=== PATIENT | female | born 1955 ===

== ENCOUNTER 2017-02-18 18:26 | Emergency (ER) | payer OTHER ==
--- NOTE | 2017-02-18 20:30 | ED ORDER SUMMARY ---
..... Patient: YAEL MAGALLANES OrderSheet [facility] VisitID: [id number] [address] [place] [address] 61y, F Registration Date/Time: 02/18/2017 ORDER SHEET Weight: 99.7 kg (stated) Allergies: Dilaudid GENERAL ORDERS: Culture, Strep Screen Urgent (19:08 02/18/2017 Gemini Chahal) (Ack 19:11 SRedmond) (19:41 SRedmond) MEDICATION ORDERS: Claritin PO 10 mg (NOW) (19:13 02/18/2017 Gemini Chahal) (Ack 19:15 TChapman R.N.) (19:18 TChapman R.N.) Benadryl PO 50 mg (NOW) (19:13 02/18/2017 Gemini Chahal) (Ack 19:15 TChapman R.N.) (19:18 TChapman R.N.) IV FLUIDS: ORDER SHEET NOTES: [Electronically signed by Sindhu Mendoza R.N. (21:02/18/2017)] [Electronically signed by Kavon Garcia Dr. (09:20 02/26/2017)] [Electronically locked/signed by Sindhu Mendoza R.N. (21:02/18/2017)]
--- NOTE | 2017-02-18 20:30 | ED CLINICAL REPORT ---
Clinical Report - Physicians/Mid Levels [facility] [address] [place] [address] 02/18/2017 18:29 Patient: YAEL MAGALLANES Time Seen: 1908; initial patient contact. Arrived- By private vehicle. Historian- patient. HISTORY OF PRESENT ILLNESS Chief Complaint: COUGH, SORE THROAT, FEVER, CHILLS and MUSCLE ACHES. This started 2 weeks ago and is still present. It was gradual in onset and has been intermittent but is not gone now. The illness is described as moderate. The patient has had a cough, a sore throat, nasal congestion, muscle aches and a nasal discharge. No difficulty breathing or chest discomfort or pain. Additional history - The patient has had contact with a sick individual. No recent travel. Similar symptoms previously: None. Recent medical care: Not recently seen/assessed. REVIEW OF SYSTEMS All systems otherwise negative, except as recorded above. PAST HISTORY See nurses notes. Problems: no known problems. Medications: None. Allergies: Dilaudid. SOCIAL HISTORY Never smoker. Not exposed to second-hand smoke at home. No alcohol use or drug use. Is a local resident. ADDITIONAL NOTES The nursing notes have been reviewed. PHYSICAL EXAM Vital Signs: 02/18/2017 18:37 BP: 133/66. HR: 85. RR: 18. O2 saturation: 97%. Temp: 98.9 F. Blood pressure normal. Oxygen saturation normal. Appearance: Alert. No acute distress. (non-toxic. pleasant. cooperative. accompanied by family.). Eyes: Pupils equal, round and reactive to light. Eyes normal inspection. ENT: Ears normal. Nose normal. Pharynx normal. Uvula midline. Neck: Normal inspection. Neck supple. CVS: Normal heart rate and rhythm. Heart sounds normal. Pulses normal. Respiratory: No respiratory distress. Breath sounds normal. No rales, rhonchi, wheezes or stridor. Abdomen: Soft and nontender. No organomegaly. Back: Normal inspection. Skin: Skin warm and dry. Normal skin color. No rash. Normal skin turgor. Extremities: Extremities exhibit normal ROM. No lower extremity edema. LABS, X-RAYS, AND EKG Laboratory Tests: Culture, Strep Screen: (LILY: 02/18/2017 00:00) ( MsgRcvd 02/20/2017 10:37) Final results Test Result Flag Units (Reference) RAPID STREP SCREEN - THROAT DATE: 02/18/17 NEGATIVE SCREEN: RAPID STREP SCREEN NEGATIVE; CONFIRMATION TO FOLLOW . DATE: 02/20/17 NO BETA STREP ISOLATED: NO BETA STREP ISOLATED . PROGRESS AND PROCEDURES Course of Care: The patient is a pleasant 61 yo female with no pertinent past medical history presenting for sore throat and cough. Lungs are clear on examination. Patient in no acute distress and non-toxic. DO not feel CXR warranted at this time. Centor criteria are indeterminate. Rapid strep ordered. Patient agreeable to the treatment and plan. Workup shows negative rapid strep. Patient reexamind and continues to be be non-toxic and in no acute distress. No concern for meningitis or pneumonia. Vitals here in the emergency department have been normal. Discussed with patient her workup here in the ED, diagnosis, home care, follow up, and return precautions. All questions answered. The patient expressed understanding of these instructions and was agreeable to them. Disposition: Discharged. Condition: good. CLINICAL IMPRESSION 02/18/2017 18:37 BP: 133/66. HR: 85. RR: 18. O2 saturation: 97%. Temp: 98.9 F. Blood pressure normal. Oxygen saturation normal. Acute pharyngitis. INSTRUCTIONS Warnings: GENERAL WARNINGS: Return or contact your physician immediately if your condition worsens or changes unexpectedly, if not improving as expected, or if other problems arise. Specifically return if pain, vomiting, bleeding, breathing difficulty or fever. Your Current Medications: CONTINUE TAKING THE FOLLOWING MEDICATIONS: None*. Prescription Medications: Phenergan w/ Codeine 10mg / 6.25mg per 5 mL: take 1 teaspoon every 6 hours as needed for pain or cough. Dispense sixty (60) mL. No refill. Substitution is permissible. OTC Medications: Acetaminophen (available over the counter): take according to label instructions. Motrin (available over the counter): take according to label instructions. Benadryl Allergy 25 mg (available over the counter): take 1 orally every 6 hours. Dispense thirty (30). No refill. Substitution is permissible. (PRN nasal congestion) Claritin 10 mg (available over the counter): take 1 tablet orally every 12 hours as needed for congestion. Dispense thirty (30). No refill. Substitution is permissible. Follow-up: Return to the emergency department as needed. Follow up with your doctor in three days. Reason for referral: recheck today's concerns. Summary of care provided to patient via paper. Screening today revealed the patient's blood pressure to be in the normal range. The patient should follow up with a primary care provider for blood pressure management. Understanding of the discharge instructions verbalized by patient. (Electronically signed by Kavon Garcia Dr. 02/26/2017 9:20)
--- NOTE | 2017-02-18 20:30 | ED ORDER SUMMARY ---
..... Patient: YAEL MAGALLANES OrderSheet [facility] VisitID: [id number] [address] [place] [address] 61y, F Registration Date/Time: 02/18/2017 ORDER SHEET Weight: 99.7 kg (stated) Allergies: Dilaudid GENERAL ORDERS: Culture, Strep Screen Urgent (19:08 02/18/2017 Gemini Chahal) (Ack 19:11 SRedmond) (19:41 SRedmond) MEDICATION ORDERS: Claritin PO 10 mg (NOW) (19:13 02/18/2017 Gemini Chahal) (Ack 19:15 TChapman R.N.) (19:18 TChapman R.N.) Benadryl PO 50 mg (NOW) (19:13 02/18/2017 Gemini Chahal) (Ack 19:15 TChapman R.N.) (19:18 TChapman R.N.) IV FLUIDS: ORDER SHEET NOTES: [Electronically signed by Sindhu Mendoza R.N. (21:02/18/2017)] [Electronically signed by Kavon Garcia Dr. (09:20 02/26/2017)] [Electronically locked/signed by Sindhu Mendoza R.N. (21:02/18/2017)]
--- NOTE | 2017-02-18 20:30 | ED NURSING NOTES ---
Clinical Report - Nurses [facility] [place] [address] 02/18/2017 18:29 [id number] Triage time 18:37. Chief Complaint: COUGH, RUNNY NOSE and SORE THROAT. --18:41 Sindhu Mendoza R.N. 18:37 02/18/17. BP: 133/66. HR: 85. RR: 18. O2 saturation: 97%. Temp: 98.9 F. Pain level now 05/21. --18:41 Sindhu Mendoza R.N. Weight: 99.7 kg stated. Height/Length: 62 inches Per Patient. BMI: 40.2. --18:36 Sindhu Mendoza R.N. Medications None. --18:38 Sindhu Mendoza R.N. Allergies Dilaudid. --18:38 Sindhu Mendoza R.N. History Arrived by private vehicle. Historian: patient. Primary physician (nO dOC). Onset. (2 weeks ago). ( GOT WORSE IN THE LAST COUPLE DAYS). --18:41 Sindhu Mendoza R.N. PROBLEMS: no known problems. ADDITIONAL SURGERIES: Bladder Suspension. Hysterectomy. Knee Surgery. Laparoscopy. Tubal Ligation. --18:40 Sindhu Mendoza R.N. PHYSICAL ASSESSMENT 18:41 02/18/17. GENERAL / NEURO / PSYCH: Alert. Oriented X 4. Appears in no acute distress. HEENT: Pupils equal, round and reactive to light. Runny nose. Mucous membranes are pink. RESPIRATORY: Respirations not labored. Breath sounds within normal limits. CVS: Normal sinus rhythm noted. Capillary refill less than 2 seconds. SKIN: Skin is warm. Normal skin turgor. --18:41 Sindhu Mendoza R.N. NURSING PROGRESS NOTES 18:42 02/18/17. Patient gowned. Call light placed in reach. Side rails up x 1. Bed placed in lowest position. Brakes of bed on. Patient ready for evaluation- chart flagged and notification provided. --18:42 Sindhu Mendoza R.N. 19:18 02/18/2017 Claritin (Loratadine) PO 10 mg given. Allergies verified and confirmed 5 rights. --19:18 Sindhu Mendoza R.N. 19:18 02/18/2017 Benadryl (DiphenhydrAMINE HCl) PO 50 mg given. Allergies verified, confirmed 5 rights and sedative warning given to the patient. --19:18 Sindhu Mendoza R.N. DISPOSITION / DISCHARGE 20:37 02/18/17. Condition at departure: stable. The goals identified in the patient's plan of care were met. No learning barriers present. Discharge instructions provided and reviewed with the patient and spouse. Reviewed warnings (Do not drive while on sedative medications.). Reviewed medication(s) side effects, precautions, dosing and course information. Prescription(s) given to the patient. Patient verbalized understanding. Written instructions provided in [place]. ( If you have an allergy with dilaudid you may find that you are sensitive to codeine products contained in one of the medications you were prescribed, use caution when taking this medication or you may choose not to take it. Follow up with your PCP in three days. Return if symptoms worsen. Increase fluids to loosen secretions. Get plenty of rest. Patient and spouse verbalized understanding and had no questions at this time.). The patient was discharged by the physician. She was discharged home and accompanied by spouse. She left the Emergency Department ambulatory and via private vehicle. Spouse driving. FALL RISK ASSESSMENT: Fall risk assessment completed. No fall risk identified. --20:37 Elisabeth Matos 20:34 02/18/17. BP: 132/60. HR: 80. RR: 20. O2 saturation: 97% on room air. Temp: 98.9 F (oral). --20:37 Elisabeth Matos. Locked/Released at 02/18/2017 21:01 by Sindhu Mendoza R.N.
--- NOTE | 2017-02-18 20:30 | ED NURSING NOTES ---
Clinical Report - Nurses [facility] [place] [address] 02/18/2017 18:29 [id number] Triage time 18:37. Chief Complaint: COUGH, RUNNY NOSE and SORE THROAT. --18:41 Sindhu Mendoza R.N. 18:37 02/18/17. BP: 133/66. HR: 85. RR: 18. O2 saturation: 97%. Temp: 98.9 F. Pain level now 05/21. --18:41 Sindhu Mendoza R.N. Weight: 99.7 kg stated. Height/Length: 62 inches Per Patient. BMI: 40.2. --18:36 Sindhu Mendoza R.N. Medications None. --18:38 Sindhu Mendoza R.N. Allergies Dilaudid. --18:38 Sindhu Mendoza R.N. History Arrived by private vehicle. Historian: patient. Primary physician (nO dOC). Onset. (2 weeks ago). ( GOT WORSE IN THE LAST COUPLE DAYS). --18:41 Sindhu Mendoza R.N. PROBLEMS: no known problems. ADDITIONAL SURGERIES: Bladder Suspension. Hysterectomy. Knee Surgery. Laparoscopy. Tubal Ligation. --18:40 Sindhu Mendoza R.N. PHYSICAL ASSESSMENT 18:41 02/18/17. GENERAL / NEURO / PSYCH: Alert. Oriented X 4. Appears in no acute distress. HEENT: Pupils equal, round and reactive to light. Runny nose. Mucous membranes are pink. RESPIRATORY: Respirations not labored. Breath sounds within normal limits. CVS: Normal sinus rhythm noted. Capillary refill less than 2 seconds. SKIN: Skin is warm. Normal skin turgor. --18:41 Sindhu Mendoza R.N. NURSING PROGRESS NOTES 18:42 02/18/17. Patient gowned. Call light placed in reach. Side rails up x 1. Bed placed in lowest position. Brakes of bed on. Patient ready for evaluation- chart flagged and notification provided. --18:42 Sindhu Mendoza R.N. 19:18 02/18/2017 Claritin (Loratadine) PO 10 mg given. Allergies verified and confirmed 5 rights. --19:18 Sindhu Mendoza R.N. 19:18 02/18/2017 Benadryl (DiphenhydrAMINE HCl) PO 50 mg given. Allergies verified, confirmed 5 rights and sedative warning given to the patient. --19:18 Sindhu Mendoza R.N. DISPOSITION / DISCHARGE 20:37 02/18/17. Condition at departure: stable. The goals identified in the patient's plan of care were met. No learning barriers present. Discharge instructions provided and reviewed with the patient and spouse. Reviewed warnings (Do not drive while on sedative medications.). Reviewed medication(s) side effects, precautions, dosing and course information. Prescription(s) given to the patient. Patient verbalized understanding. Written instructions provided in [place]. ( If you have an allergy with dilaudid you may find that you are sensitive to codeine products contained in one of the medications you were prescribed, use caution when taking this medication or you may choose not to take it. Follow up with your PCP in three days. Return if symptoms worsen. Increase fluids to loosen secretions. Get plenty of rest. Patient and spouse verbalized understanding and had no questions at this time.). The patient was discharged by the physician. She was discharged home and accompanied by spouse. She left the Emergency Department ambulatory and via private vehicle. Spouse driving. FALL RISK ASSESSMENT: Fall risk assessment completed. No fall risk identified. --20:37 Elisabeth Matos 20:34 02/18/17. BP: 132/60. HR: 80. RR: 20. O2 saturation: 97% on room air. Temp: 98.9 F (oral). --20:37 Elisabeth Matos. Locked/Released at 02/18/2017 21:01 by Sindhu Mendoza R.N.
--- NOTE | 2017-02-26 09:20 | ED DISCHARGE INSTRUCTIONS ---
Patient: YAEL MAGALLANES General Instructions [facility] VisitID: [id number] [place] [address] 61y, F Registration Date/Time: 02/18/2017 02/18/2017 18:37 BP: 133/66. HR: 85. RR: 18. O2 saturation: 97%. Temp: 98.9 F. Blood pressure normal. Oxygen saturation normal. Acute pharyngitis. INSTRUCTIONS Warnings: GENERAL WARNINGS: Return or contact your physician immediately if your condition worsens or changes unexpectedly, if not improving as expected, or if other problems arise. Specifically return if pain, vomiting, bleeding, breathing difficulty or fever. Your Current Medications: CONTINUE TAKING THE FOLLOWING MEDICATIONS: None*. Prescription Medications: Phenergan w/ Codeine 10mg / 6.25mg per 5 mL: take 1 teaspoon every 6 hours as needed for pain or cough. Dispense sixty (60) mL. No refill. Substitution is permissible. OTC Medications: Acetaminophen (available over the counter): take according to label instructions. Motrin (available over the counter): take according to label instructions. Benadryl Allergy 25 mg (available over the counter): take 1 orally every 6 hours. Dispense thirty (30). No refill. Substitution is permissible. (PRN nasal congestion) Claritin 10 mg (available over the counter): take 1 tablet orally every 12 hours as needed for congestion. Dispense thirty (30). No refill. Substitution is permissible. Follow-up: Return to the emergency department as needed. Follow up with your doctor in three days. Reason for referral: recheck today's concerns. Summary of care provided to patient via paper. Screening today revealed the patient's blood pressure to be in the normal range. The patient should follow up with a primary care provider for blood pressure management. Understanding of the discharge instructions verbalized by patient. ADDITIONAL INFORMATION Viral Respiratory Illness [Adult] You have an Upper Respiratory Illness (URI) caused by a virus. This illness is contagious during the first few days. It is spread through the air by coughing and sneezing or by direct contact (touching the sick person and then touching your own eyes, nose or mouth). Most viral illnesses go away within 7-10 days with rest and simple home remedies. Sometimes, the illness may last for several weeks. Antibiotics will not kill a virus and are generally not prescribed for this condition. Home Care: 1) If symptoms are severe, rest at home for the first 2-3 days. When you resume activity, don't let yourself get too tired. 2) Avoid being exposed to cigarette smoke (yours or others). 3) Tylenol (acetaminophen) or ibuprofen (Advil, Motrin) will help fever, muscle aching and headache. (Persons under 18 with fever should not take aspirin since this may cause liver damage.) 4) Your appetite may be poor, so a light diet is fine. Avoid dehydration by drinking 6-8 glasses of fluids per day (water, soft drinks, juices, tea, soup). Extra fluids will help loosen secretions in the nose and lungs. 5) Kkft-xig-aflcecu cold medicines will not shorten the length of time youre sick, but they may be helpful for the following symptoms: cough (Robitussin DM); sore throat (Chloraseptic lozenges or spray); nasal and sinus congestion (Actifed, Sudafed, Chlortrimeton). Follow Up with your doctor or as advised if you dont improve over the next week. Get Prompt Medical Attention if any of the following occur: -- Cough with lots of colored sputum (mucus) or blood in your sputum -- Chest pain, shortness of breath, wheezing or have trouble breathing -- Severe headache; face, neck or ear pain -- Fever over 100.4 F (38.0 C) for more than three days -- You cant swallow due to throat pain Diphenhydramine Tannate Chewable tablet What is this medicine? DIPHENHYDRAMINE (dye lior jett) is an antihistamine. It is used to treat the symptoms of an allergic reaction. How should I use this medicine? Take this medicine by mouth. Chew it completely before swallowing. Follow the directions on the prescription label. Take your doses at regular intervals. Do not take your medicine more often than directed. Talk to your derrick boat operator regarding the use of this medicine in children. While this drug may be prescribed for children as young as 6 years old for selected conditions, precautions do apply. Patients over 65 years old may have a stronger reaction and need a smaller dose. What side effects may I notice from receiving this medicine? Side effects that you should report to your doctor or health care nurse rn as soon as possible: allergic reactions like skin rash, itching or hives, swelling of the face, lips, or tongue changes in vision confused, agitated, nervous irregular or fast heartbeat tremor trouble passing urine unusual bleeding or bruising unusually weak or tired Side effects that usually do not require medical attention (report to your doctor or health care nurse rn if they continue or are bothersome): constipation, diarrhea drowsy headache loss of appetite stomach upset, vomiting thick mucous What may interact with this medicine? Do not take this medicine with any of the following medications: MAOIs like Carbex, Eldepryl, Marplan, Nardil, and Parnate This medicine may also interact with the following medications: alcohol barbiturates, like phenobarbital medicines for bladder spasm like oxybutynin, tolterodine medicines for blood pressure medicines for depression, anxiety, or psychotic disturbances medicines for movement abnormalities or Parkinson's disease medicines for sleep other medicines for cold, cough or allergy some medicines for the stomach like chlordiazepoxide, dicyclomine What if I miss a dose? If you miss a dose, take it as soon as you can. If it is almost time for your next dose, take only that dose. Do not take double or extra doses. Where should I keep my medicine? Keep out of the reach of children. Store at room temperature between 15 and 30 degrees C (59 and 86 degrees F). Keep container closed tightly. Throw away any unused medicine after the expiration date. What should I tell my health care provider before I take this medicine? They need to know if you have any of these conditions: glaucoma high blood pressure heart disease liver disease lung or breathing disease, like asthma pain or difficulty passing urine phenylketonuria prostate trouble ulcers or other stomach problems an unusual or allergic reaction to diphenhydramine, sulfites, other medicines foods, dyes, or preservatives or trying to get breast-feeding What should I watch for while using this medicine? Visit your doctor or health care nurse rn for regular check ups. Tell your doctor or healthcare professional if your symptoms do not start to get better or if they get worse. Your mouth may get dry. Chewing sugarless gum or sucking hard candy, and drinking plenty of water may help. Contact your doctor if the problem does not go away or is severe. This medicine may cause dry eyes and blurred vision. If you wear contact lenses you may feel some discomfort. Lubricating drops may help. See your eye doctor if the problem does not go away or is severe. You may get drowsy or dizzy. Do not drive, use machinery, or do anything that needs mental alertness until you know how this medicine affects you. Do not stand or sit up quickly, especially if you are an older patient. This reduces the risk of dizzy or fainting spells. Alcohol may interfere with the effect of this medicine. Avoid alcoholic drinks. Loratadine Oral tablet, extended release 24 hour What is this medicine? LORATADINE (panchito AT a mary) is an antihistamine. It helps to relieve sneezing, runny nose, and itchy, watery eyes. This medicine is used to treat the symptoms of allergies. It is also used to treat itchy skin rash and hives. How should I use this medicine? Take this medicine by mouth with a glass of water. Follow the directions on the label. You may take this medicine with food or on an empty stomach. Take your medicine at regular intervals. Do not take your medicine more often than directed. Talk to your derrick boat operator regarding the use of this medicine in children. While this medicine may be used in children as young as 6 years for selected conditions, precautions do apply. What side effects may I notice from receiving this medicine? Side effects that you should report to your doctor or health care nurse rn as soon as possible: allergic reactions like skin rash, itching or hives, swelling of the face, lips, or tongue breathing problems unusually restless or nervous Side effects that usually do not require medical attention (report to your doctor or health care nurse rn if they continue or are bothersome): drowsiness dry or irritated mouth or throat headache What may interact with this medicine? other medicines for colds or allergies What if I miss a dose? If you miss a dose, take it as soon as you can. If it is almost time for your next dose, take only that dose. Do not take double or extra doses. Where should I keep my medicine? Keep out of the reach of children. Store at room temperature between 2 and 30 degrees C (36 and 86 degrees F). Protect from moisture. Throw away any unused medicine after the expiration date. What should I tell my health care provider before I take this medicine? They need to know if you have any of these conditions: asthma kidney disease liver disease an unusual or allergic reaction to loratadine, other antihistamines, other medicines, foods, dyes, or preservatives or trying to get breast-feeding What should I watch for while using this medicine? Tell your doctor or healthcare professional if your symptoms do not start to get better or if they get worse. Your mouth may get dry. Chewing sugarless gum or sucking hard candy, and drinking plenty of water may help. Contact your doctor if the problem does not go away or is severe. You may get drowsy or dizzy. Do not drive, use machinery, or do anything that needs mental alertness until you know how this medicine affects you. Do not stand or sit up quickly, especially if you are an older patient. This reduces the risk of dizzy or fainting spells. You have been given the following additional information: Uri, Viral, No Abx (Adult) Diphenhydramine Tannate Chewable tablet Loratadine Oral tablet, extended release 24 hour (Electronically signed by Kavon Garcia Dr. 02/26/2017 9:20)
--- NOTE | 2017-02-26 09:20 | ED MAR SUMMARY ---
..... Medication Administration Record [facility] [address] [place] [address] Patient: YAEL MAGALLANES Visit ID: [id number] 61y, F Weight: 99.7 kg Height/Length: 62 in BMI: 40.2 ALLERGIES: Dilaudid Given 19:02/18/2017 Sindhu Mendoza RMorales Medication Administered: CLARITIN [PO] (LORATADINE), Dose: 10 mg PO. Medication Ordered: Claritin PO 10 mg (NOW). Given 19:02/18/2017 Sindhu Mendoza, R.N. Medication Administered: BENADRYL [PO] (DIPHENHYDRAMINE HCL), Dose: 50 mg PO. Medication Ordered: Benadryl PO 50 mg (NOW).
--- NOTE | 2017-02-26 09:20 | ED MED RECONCILIATION SUMMARY ---
Patient: YAEL MAGALLANES Medication Reconciliation Report [facility] VisitID: [id number] [address] [place] [address] 61y, F Registration Date/Time: 02/18/2017 Weight: 99.7 kg Height/Length: 62 in. BMI: 40.2 ALLERGIES: Dilaudid The patient's Home Medications are listed below: NONE. The source(s) of the original Home Medication information: Not obtained. The following Medications were given to the patient in the Emergency Department: Claritin [PO] PO 10 mg, administered: 02/18/2017 7:18:00 PM Benadryl [PO] PO 50 mg, administered: 02/18/2017 7:18:00 PM The following Medications were prescribed to the patient: Acetaminophen (available over the counter): take according to label instructions. -- Kavon Garcia Dr. Motrin (available over the counter): take according to label instructions. -- Kavon Garcia Dr. Benadryl Allergy 25 mg (available over the counter): take 1 orally every 6 hours. Dispense thirty (30). No refill. Substitution is permissible.(PRN nasal congestion) -- Kavon Garcia Dr. Claritin 10 mg (available over the counter): take 1 tablet orally every 12 hours as needed for congestion. Dispense thirty (30). No refill. Substitution is permissible. -- Kavon Garcia Dr. Phenergan w/ Codeine 10mg / 6.25mg per 5 mL: take 1 teaspoon every 6 hours as needed for pain or cough. Dispense sixty (60) mL. No refill. Substitution is permissible. -- Kavon Garcia Dr.
--- NOTE | 2017-02-26 09:20 | ED MAR SUMMARY ---
..... Medication Administration Record [facility] [address] [place] [address] Patient: YAEL MAGALLANES Visit ID: [id number] 61y, F Weight: 99.7 kg Height/Length: 62 in BMI: 40.2 ALLERGIES: Dilaudid Given 19:02/18/2017 Sindhu Mendoza RMorales Medication Administered: CLARITIN [PO] (LORATADINE), Dose: 10 mg PO. Medication Ordered: Claritin PO 10 mg (NOW). Given 19:02/18/2017 Sindhu Mendoza, R.N. Medication Administered: BENADRYL [PO] (DIPHENHYDRAMINE HCL), Dose: 50 mg PO. Medication Ordered: Benadryl PO 50 mg (NOW).
--- NOTE | 2017-02-26 09:20 | ED MED RECONCILIATION SUMMARY ---
Patient: YAEL MAGALLANES Medication Reconciliation Report [facility] VisitID: [id number] [address] [place] [address] 61y, F Registration Date/Time: 02/18/2017 Weight: 99.7 kg Height/Length: 62 in. BMI: 40.2 ALLERGIES: Dilaudid The patient's Home Medications are listed below: NONE. The source(s) of the original Home Medication information: Not obtained. The following Medications were given to the patient in the Emergency Department: Claritin [PO] PO 10 mg, administered: 02/18/2017 7:18:00 PM Benadryl [PO] PO 50 mg, administered: 02/18/2017 7:18:00 PM The following Medications were prescribed to the patient: Acetaminophen (available over the counter): take according to label instructions. -- Kavon Garcia Dr. Motrin (available over the counter): take according to label instructions. -- Kavon Garcia Dr. Benadryl Allergy 25 mg (available over the counter): take 1 orally every 6 hours. Dispense thirty (30). No refill. Substitution is permissible.(PRN nasal congestion) -- Kavon Garcia Dr. Claritin 10 mg (available over the counter): take 1 tablet orally every 12 hours as needed for congestion. Dispense thirty (30). No refill. Substitution is permissible. -- Kavon Garcia Dr. Phenergan w/ Codeine 10mg / 6.25mg per 5 mL: take 1 teaspoon every 6 hours as needed for pain or cough. Dispense sixty (60) mL. No refill. Substitution is permissible. -- Kavon Garcia Dr.
== END 2017-02-18 20:30 | disposition home or self-care (01) ==
LOC: ED SRH 18:26
DX: J02.9 Acute pharyngitis, unspecified (principal); Z88.5 Allergy status to narcotic agent
CPT/HCPCS: 90154; 90159